=== PATIENT | male | born 1960 | race African-American/Black ===

== ENCOUNTER 2018-06-08 09:18 | Inpatient (IN) | payer BC ==
[~2018-06-08] VITALS: Ht 175.3 cm; Wt 108.4 kg
[2018-06-08] VITALS (7 sets, daily range): BP systolic 120–142; BP diastolic 62–86
[2018-06-08 10:00] LABS: ABSOLUTE NEUTROPHILS 2.4 thou/uL (1.4-8.2); BASOPHILS 1.3 % (0.0-2.0); EOSINOPHILS 2.3 % (0.0-3.0); HEMATOCRIT 43.8 % (42.0-52.0); LYMPHOCYTES 22.5 % (24.0-44.0); MCH 29.6 pg (26.0-34.0); MCHC 34.1 g/dL (28.0-37.0); MCV 86.8 fL (80.0-100.0); MONOCYTES 8.7 % (1.0-8.0); PLATELET COUNT 200 thou/uL (150-400); POLYS 65.2 % (36.0-66.0); RBC 5.05 mil/uL (4.50-6.00); RDW 13.5 % (10.5-14.5); WBC 3.7 thou/uL (4.0-11.0)
[2018-06-08 10:03] LABS: ANION GAP 7 mmol/L (7-16); BUN 21 mg/dL (7-18); CALCIUM 9.5 mg/dL (8.5-10.1); CHLORIDE 106 mmol/L (98-107); CO2 31 mmol/L (21-32); CREATININE 1.7 mg/dL (0.7-1.3); GLUCOSE 111 mg/dL (74-106); POTASSIUM 3.6 mmol/L (3.5-5.1); SODIUM 144 mmol/L (136-145)
[2018-06-08 10:11] LABS: ALBUMIN 3.5 g/dL (3.4-5.0); SGOT 24 U/L (15-37); SGPT 25 U/L (30-65); TOTAL BILIRUBIN 0.3 mg/dL (<0.1-1.0); TOTAL PROTEIN 6.9 g/dL (6.4-8.2); TROPONIN-I <0.06 ng/mL (<0.06)
[2018-06-08] MEDS ORDERED: HYDRALAZINE 2525 MG PO (12:17)
[2018-06-08] MEDS ORDERED: TOPROL XL100 MG PO (12:17)
[2018-06-08] MEDS ORDERED: ZYLOPRIM300 MG PO (12:18)
[2018-06-08] MEDS ORDERED: INDAPAMIDE2.5 MG PO (12:21)
--- NOTE | 2018-06-08 14:46 | EKG ---
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: TERESA : 1960 Requested By: Arianna King Order Number: [id number] MD: Trevon Green Measurements Intervals [place] Rate: 61 P: 30 [place]: 168 QRS: -65 QRSD: 126 T: 242 QT: 457 QTc: 461 Interpretive Statements Sinus rhythm Nonspecific IVCD with LAD Inferior infarct, old Abnrm T, consider ischemia, anterolateral lds Compared to ECG 02/06/2008 11:09:41 Electronically Signed On 06-08-2018 14:46:28 CDT by Trevon Green [email or web address] ��������������������������������������������� <ELECTRONICALLY SIGNED> ���������������������������������������� By: Trevon Green MD ��������������������������������������������� 06/08/18 1446 0923 Trevon Green MD /EPI
--- NOTE | 2018-06-08 15:50 | 2DMMODE ---
[facility] [place] [address] 2 D/M-MODE ECHOCARDIOGRAM Name: RUY MENDOZA Room #: 201-P [facility] IN M.R.#: [id number] ������������� Admission: 06/08/18 ������������� Attend Phys: Delfin Mancuso MD Discharge: ��� ������������� ��� Date of : 56 Date of Service: 06/08/18 1550 �� Report #: [id number] �������� ��������������������������������������������[id number] THIS REPORT FOR: //name// APPROVED REPORT Study performed: 06/08/2018 14:55:32 EXAM: Comprehensive 2D, Doppler, and color-flow Echocardiogram Patient Location: Echo lab Room #: 201 Status: routine BSA: 2.23 HR: 57 bpm BP: 134/86 mmHg Rhythm: NSR/irregular Other Information Study Quality: Good Indications Abnormal ECG Chest Pain 2D Dimensions RVDd: 42.16 mm IVSd: 12.94 (7-11mm) LVOT Diam: 22.70 (18-24mm) LVDd: 48.11 mm PWd: 12.03 (7-11mm) Ascending Ao: 36.21 (22-36mm) LVDs: 35.75 (25-40mm) Aortic Root: 40.07 mm Volumes Left Atrial Volume (Systole) Single Plane 4CH: 58.09 mL Single Plane 2CH: 66.87 mL LA ESV Index: 29.00 mL/m2 Aortic Valve AoV Peak Young.: 1.38 m/s AO Peak Gr.: 7.60 mmHg LVOT Max P.77 mmHg LVOT Max V: 1.09 m/s MORALES Vmax: 3.20 cm2 Mitral Valve E/A Ratio: 1.3 MV Decel. Time: 195.87 ms [facility] [place] [address] 2 D/M-MODE ECHOCARDIOGRAM Name: RUY MENDOZA Room #: 201-P [facility] IN [facility].#: [id number] ������������� Admission: 06/08/18 ������������� Attend Phys: Delfin Mancuso MD Discharge: ��� ������������� ��� Date of : 56 Date of Service: 06/08/18 1550 �� Report #: [id number] �������� ��������������������������������������������[id number] MV E Max Young.: 0.66 m/s MV A Young.: 0.49 m/s MV PHT: 56.80 ms IVRT: 87.66 ms Pulmonary Valve PV Peak Young.: 0.85 m/s PV Peak Gr.: 2.91 mmHg Pulmonary Vein P Vein S: 0.46 m/s P Vein D: 0.35 m/s P Vein S/D Ratio: 1.31 Tricuspid Valve TR Peak Young.: 1.78 m/s RAP Estimate: 5.00 mmHg TR Peak Gr.: 12.61 mmHg PA Pressure: 22.00 mmHg Left Ventricle The left ventricle is normal size. There is normal LV segmental wall motion. Mild concentric left ventricular hypertrophy. Left ventricular systolic function is normal. LVEF is 55-60%. Moderate diastolic dysfunction is present (pseudonormal filling). Right Ventricle The right ventricle is normal size. The right ventricular systolic function is normal. Atria The left atrium size is normal. The right atrium size is normal. Aortic Valve The aortic valve is normal in structure. Mild aortic regurgitation. There is no aortic valvular stenosis. Mitral Valve The mitral valve is normal in structure. Trace mitral regurgitation. Tricuspid Valve The tricuspid valve is normal in structure. Trace tricuspid regurgitation. Estimated PAP is 20-25mmHg. Pulmonic Valve The pulmonary valve is normal in structure. Trace pulmonic [facility] [address] [place] [address] 2 D/M-MODE ECHOCARDIOGRAM Name: RUY MENDOZA Room #: 201-P [facility] IN .R.#: [id number] ������������� Admission: 06/08/18 ������������� Attend Phys: Delfin Mancuso MD Discharge: ��� ������������� ��� Date of : 56 Date of Service: 06/08/18 1550 �� Report #: [id number] �������� ��������������������������������������������[id number] regurgitation. Great Vessels Aortic root is mildly dilated at 4.0cm. The ascending aorta is normal in size. IVC is normal in size and collapses >50% with inspiration. Pericardium There is no pericardial effusion. <Conclusion> The left ventricle is normal size. LVEF is 55-60%. The aortic valve is normal in structure. Mild aortic regurgitation. The mitral valve is normal in structure. Trace mitral regurgitation. The tricuspid valve is normal in structure. Trace tricuspid regurgitation. Estimated PAP is 20-25mmHg. The pulmonary valve is normal in structure. Trace pulmonic regurgitation. Aortic root is mildly dilated at 4.0cm. There is no pericardial effusion. ��������������������������������������������� <ELECTRONICALLY SIGNED> ���������������������������������������� By: Cedric Amaro MD ��������������������������������������������� 06/08/18 1550 1550 1550 Cedric Amaro MD /INF
--- NOTE | 2018-06-08 16:56 | NUR ---
[age] YEAR OLD MALE ADMITTED TO 201 UNDER THE CARE OF DR. CALZADA. PT CAME IN TO THE ER THIS MORNING AFTER BEING TOLD TO DO AO PER PCP. PT HAD BEEN C/O CHEST PAIN. PT IS ALERT AND ORIETED TIMES FOUR, VERY PLEASANT. VSS, 98%RA, SR ON TELE, IVF INFUSING PER ORDER. PT DENEIS ANY PAIN OR SOA DURING ADMISSION ASSESSMENT. PT UP WITH STAND BY ASSIT. PT TOLERATES MEDS AND MEALS. PT DAUGHTS AT BEDSIDE. WILL CONTINUE TO MONITOR.
[2018-06-09 00:43] VITALS: BP 145/86
--- NOTE | 2018-06-09 02:31 | NUR ---
ASSUMED CARE 1900. VSS-SR ON MONITOR. ASSESSMENT CHARTED. PT DENIES CP, SOA, DIZZINESS, NUMBNESS, OR PRIOR SYMPTOMS. PT STATED HE HAD CHEST DISCOMFORT WHEN BROUGHT TO ED BUT NOT SINCE ON UNIT. FLUIDS PER EMAR, ST BY TO BATHROOM STEADY. SLEEPING WELL THROUGH NIGHT. PLAN FOR AM LABS, EKG, AND STRESS TEST. WILL CONTINUE TO MONITOR AND WITH POC.
[2018-06-09 04:20] VITALS: BP 172/94
[2018-06-09 05:18] LABS: HEMATOCRIT 44.1 % (42.0-52.0); HEMOGLOBIN 14.9 gm/dL (14.0-18.0); MCH 29.7 pg (26.0-34.0); MCHC 33.9 g/dL (28.0-37.0); MCV 87.7 fL (80.0-100.0); PLATELET COUNT 189 thou/uL (150-400); RBC 5.03 mil/uL (4.50-6.00); RDW 13.4 % (10.5-14.5); WBC 4.5 thou/uL (4.0-11.0)
[2018-06-09 05:27] LABS: CALCIUM 9.6 mg/dL (8.5-10.1); CREATININE 1.6 mg/dL (0.7-1.3); POTASSIUM 3.8 mmol/L (3.5-5.1)
[2018-06-09 06:11] LABS: ABSOLUTE NEUTROPHILS 2.2 thou/uL (1.4-8.2)
[2018-06-09 06:12] LABS: PLATELET ESTIMATE NORMAL
[2018-06-09 06:18] LABS: CHOLESTEROL 232 mg/dL (<200); HDL CHOLESTEROL 34 mg/dL (>40); LDL CHOLESTEROL 164 mg/dL (<100); SERUM ASSESSMENT Clear; TC:HDL 6.8 Ratio (Not establshd); TRIGLYCERIDE 170 mg/dL (<150); TROPONIN-I <0.06 ng/mL (<0.06); VLDL 34 mg/dL (<40)
--- NOTE | 2018-06-09 08:34 | EKG ---
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 Cutter: KAREN : 1960 Requested By: Flora Almeida Order Number: [id number] MD: Trevon Green Measurements Intervals [place] Rate: 68 P: 43 [place]: 161 QRS: -55 QRSD: 97 T: -22 QT: 432 QTc: 460 Interpretive Statements Sinus rhythm Abnormal R-wave progression, late transition Probable inferior infarct, age indeterminate Baseline wander in lead(s) V6 Compared to ECG 06/08/2018 09:23:43 Intraventricular conduction delay no longer present Possible ischemia no longer present Myocardial infarct finding still present Electronically Signed On 06-09-2018 8:33:46 CDT by Trevon Green [email or web address] ��������������������������������������������� <ELECTRONICALLY SIGNED> ���������������������������������������� By: Trevon Green MD ��������������������������������������������� 06/09/1833 0 0 Trevon Green MD /EPI
[2018-06-09 08:42] VITALS: BP 162/105
[2018-06-09] MEDS ORDERED: LISINOPRIL40 MG PO ×2 (11:28→13:59)
[2018-06-09 11:29] VITALS: BP 156/89
[2018-06-09] MEDS ORDERED: ASPIRIN81 M2 PO (13:59)
[2018-06-09] MEDS ORDERED: NITROGLYCERIN0.4 MG SUBLING (13:59)
[2018-06-09] MEDS ORDERED: ATORVASTATIN CA40 MG PO (13:59)
[2018-06-09 14:31] VITALS: BP 156/89
== END 2018-06-09 15:03 | disposition home or self-care (01) | DRG 205 ==
LOC: ER 09:18 → EROBS 10:46 → 2N 10:46 → ENTRNSPT 06-09 14:55 → EDTRNSPTSTS 06-09 14:56 → 2N 06-09 15:03
PROVIDERS: Nurse Practitioner; Physician Assistant; ADMIT Hospitalist
DX: M94.0 Chondrocostal junction syndrome [Tietze] (principal); E43 Unspecified severe protein-calorie malnutrition; N17.9 Acute kidney failure, unspecified; I10 Essential (primary) hypertension; E78.5 Hyperlipidemia, unspecified; M10.9 Gout, unspecified; Z60.2 Problems related to living alone; Z96.0 Presence of urogenital implants; I70.1 Atherosclerosis of renal artery; Z87.442 Personal history of urinary calculi; Z82.49 Family history of ischemic heart disease and other diseases of the circulatory system; Z83.3 Family history of diabetes mellitus; Z79.899 Other long term (current) drug therapy
CPT/HCPCS: 10081

== ENCOUNTER 2018-06-13 08:22 | Emergency (ER) | payer BC ==
[~2018-06-13] VITALS: Ht 177.8 cm; Wt 108.9 kg
[~2018-06-13 08:22] MED LIST: ASPIRIN81 M2 PO; ATORVASTATIN CA40 MG PO; HYDRALAZINE 2525 MG PO; INDAPAMIDE2.5 MG PO; LISINOPRIL40 MG PO; NITROGLYCERIN0.4 MG SUBLING; TOPROL XL100 MG PO; ZYLOPRIM300 MG PO
[2018-06-13 09:12] LABS: ABSOLUTE NEUTROPHILS 2.3 thou/uL (1.4-8.2); BASOPHILS 2.2 % (0.0-2.0); EOSINOPHILS 2.4 % (0.0-3.0); HEMATOCRIT 45.2 % (42.0-52.0); HEMOGLOBIN 15.5 gm/dL (14.0-18.0); LYMPHOCYTES 26.2 % (24.0-44.0); MCH 29.6 pg (26.0-34.0); MCHC 34.3 g/dL (28.0-37.0); MCV 86.2 fL (80.0-100.0); MONOCYTES 9.9 % (1.0-8.0); PLATELET COUNT 186 thou/uL (150-400); POLYS 59.3 % (36.0-66.0); RBC 5.24 mil/uL (4.50-6.00); RDW 13.6 % (10.5-14.5); WBC 3.9 thou/uL (4.0-11.0)
[2018-06-13 09:19] LABS: CALCIUM 9.2 mg/dL (8.5-10.1); CREATININE 1.5 mg/dL (0.7-1.3); POTASSIUM 4.1 mmol/L (3.5-5.1)
[2018-06-13 09:28] LABS: TROPONIN-I 0.06 ng/mL (<0.06)
[2018-06-13] MEDS ORDERED: REGLAN 5 MG TAB5 MG PO (13:29)
[2018-06-13] MEDS ORDERED: NITROGLYCERIN0.4 MG SUBLING (13:29)
[2018-06-13 13:38] VITALS: BP 163/105
[2018-06-14] MEDS ORDERED: HYDRALAZINE 2525 MG PO (12:53)
[2018-06-14] MEDS ORDERED: PRAVACHOL40 MG PO (12:54)
[2018-06-14] MEDS ORDERED: BENAZEPRIL HCL40 MG PO (12:54)
[2018-06-14] MEDS ORDERED: IBUPROFEN 200200 M1 PO (12:56)
[2018-06-14] MEDS ORDERED: POTASSIUM99 M1 PO (12:56)
[2018-06-14] MEDS ORDERED: INDAPAMIDE2.5 MG PO (12:57)
--- NOTE | 2018-06-14 13:37 | EKG ---
[address] [address] [facility] [place] [address] ELECTROCARDIOGRAM REPORT Name: RUY MENDOZA Room #: DEP [facility]#: [id number] ������������������ Admission: 06/13/18 ������������������ Attend Phys: Discharge: 06/13/18 ������������������ Date of : 56 Report #: [id number] ����������������������������������������������������������������� [id number] THIS REPORT FOR: //name// [facility] ED Test Date: 2018-06-13 Test Time: 09:11:01 Pat Name: RUY MENDOZA Department: Room: Gender: M Account Solutions Analyst: [facility] : 1960 Requested By: Katerina Singh Order Number: [id number] MD: Popeye Higuera Measurements Intervals [place] Rate: 65 P: 33 [place]: 167 QRS: -58 QRSD: 93 T: -25 QT: 413 QTc: 430 Interpretive Statements Sinus rhythm Abnormal R-wave progression, late transition Inferior infarct, old Compared to ECG 06/09/2018 07:01:38 No significant changes Electronically Signed On 06-14-2018 13:36:50 CDT by Popeye Higuera [email or web address] ��������������������������������������������� <ELECTRONICALLY SIGNED> ���������������������������������������� By: Popeye Higuera MD, [facility] ��������������������������������������������� 06/14/18 1336 0 0 Popeye Higuera MD, [facility] /EPI
== END 2018-06-13 13:38 | disposition home or self-care (01) ==
LOC: ER 08:22
PROVIDERS: Emergency Medicine
DX: R07.89 Other chest pain (principal); R51 Headache; I10 Essential (primary) hypertension; E78.5 Hyperlipidemia, unspecified; M10.9 Gout, unspecified

== ENCOUNTER 2018-06-14 09:04 | Inpatient (IN) | payer BC ==
[~2018-06-14] VITALS: Ht 177.8 cm; Wt 108.1 kg
[~2018-06-14 09:04] MED LIST changes: +REGLAN 5 MG TAB5 MG PO
[2018-06-14 09:14] VITALS: BP 169/135
[2018-06-14 09:40] LABS: ABSOLUTE NEUTROPHILS 2.6 thou/uL (1.4-8.2); BASOPHILS 1.1 % (0.0-2.0); EOSINOPHILS 1.5 % (0.0-3.0); HEMATOCRIT 48.6 % (42.0-52.0); HEMOGLOBIN 16.4 gm/dL (14.0-18.0); LYMPHOCYTES 27.5 % (24.0-44.0); MCH 29.5 pg (26.0-34.0); MCHC 33.8 g/dL (28.0-37.0); MCV 87.4 fL (80.0-100.0); PLATELET COUNT 205 thou/uL (150-400); POLYS 60.9 % (36.0-66.0); RBC 5.56 mil/uL (4.50-6.00); RDW 13.5 % (10.5-14.5); WBC 4.3 thou/uL (4.0-11.0)
[2018-06-14 09:52] LABS: ANION GAP 8 mmol/L (7-16); BUN 17 mg/dL (7-18); CALCIUM 10.2 mg/dL (8.5-10.1); CHLORIDE 107 mmol/L (98-107); CO2 29 mmol/L (21-32); CREATININE 1.5 mg/dL (0.7-1.3); GLUCOSE 103 mg/dL (74-106); POTASSIUM 4.1 mmol/L (3.5-5.1); SODIUM 144 mmol/L (136-145); TROPONIN-I <0.06 ng/mL (<0.06)
[2018-06-14 11:07] VITALS: BP 177/110
[2018-06-14 11:40] VITALS: BP 174/108
[2018-06-14 11:56] VITALS: BP 182/124
[2018-06-14] MEDS ORDERED: HYDRALAZINE 2525 MG PO (12:53)
[2018-06-14] MEDS ORDERED: PRAVACHOL40 MG PO (12:54)
[2018-06-14] MEDS ORDERED: BENAZEPRIL HCL40 MG PO (12:54)
[2018-06-14 12:56] LABS: ALBUMIN 4.1 g/dL (3.4-5.0); TOTAL PROTEIN 8.1 g/dL (6.4-8.2)
[2018-06-14] MEDS ORDERED: POTASSIUM99 M1 PO (12:56)
[2018-06-14] MEDS ORDERED: IBUPROFEN 200200 M1 PO (12:56)
[2018-06-14] MEDS ORDERED: INDAPAMIDE2.5 MG PO (12:57)
[2018-06-14 13:23] LABS: TSH 1.078 uIU/mL (0.358-3.740)
--- NOTE | 2018-06-14 13:51 | EKG ---
[address] [place] [address] ELECTROCARDIOGRAM REPORT Name: RUY MENDOZA Room #: 358-P ADM IN M.R.#: [id number] ������������������ Admission: 06/14/18 ������������������ Attend Phys: Candido Rios MD Discharge: ������������������ Date of : 56 Report #: [id number] ����������������������������������������������������������������� [id number] THIS REPORT FOR: //name// [facility] ED Test Date: 2018-06-14 Test Time: 09:33:52 Pat Name: RUY MENDOZA Department: Room: 358 Gender: M Curtain Stretcher: MARCELO : 1960 Requested By: Katerina Singh Order Number: [id number] MD: Popeye Higuera Measurements Intervals [place] Rate: 68 P: 30 [place]: 169 QRS: -54 QRSD: 108 T: -28 QT: 396 QTc: 422 Interpretive Statements Sinus rhythm Premature ventricular premature complexes Abnormal R-wave progression, late transition Inferior infarct, old Compared to ECG 06/09/2018 07:01:38 Ventricular premature complex(es) now present Electronically Signed On 06-14-2018 13:51:04 CDT by Popeye Higuera [email or web address] ��������������������������������������������� <ELECTRONICALLY SIGNED> ���������������������������������������� By: Popeye Higuera MD, [facility] ��������������������������������������������� 06/14/18 1351 0933 0933 Popeye Higuera MD, [facility] /EPI
[2018-06-14 15:21] VITALS: BP 176/104
--- NOTE | 2018-06-14 15:59 | NUR ---
PATIENT ADMITTED TO UNIT. HE IS ALER SUSIED X4. AND DAUGHTER ACCOMPANIED HIM. AT THIS TIME HE COMPLAINED OF CHEST PAIN. STATES IT IS IF AN ELELPHANT IS SITTING ON MY CHEST. NOTIFIED SEE NEW ORDERS. BP HAS STAYED STUBBORNLY HIGH DESPITE NUMEROUS MEDS ADMINISTERED. JUST ADMINISTERED ANOTHER DOSE OF HYDRALAZINE. WILL MONITOR EFFECITVENESS.
[2018-06-14 19:20] VITALS: BP 162/88
--- NOTE | 2018-06-14 21:18 | EKG ---
[address] [address] ELECTROCARDIOGRAM REPORT Name: RUY MENDOZA Room #: 358-P ADM IN M.R.#: [id number] ������������������ Admission: 06/14/18 ������������������ Attend Phys: Candido Rios MD Discharge: ������������������ Date of : 56 Report #: [id number] ����������������������������������������������������������������� [id number] THIS REPORT FOR: //name// [facility] Test Date: 2018-06-14 Test Time: 15:42:16 Pat Name: RUY MENDOZA Department: Room: 358 P Gender: M Turner And Former Automatic: CRISTIANO : 1960 Requested By: Candido Rios Order Number: [id number] MD: Trevon Green Measurements Intervals [place] Rate: 71 P: 31 [place]: 169 QRS: -58 QRSD: 111 T: -85 QT: 409 QTc: 445 Interpretive Statements Sinus rhythm Abnormal R-wave progression, early transition Inferior infarct, old Abnrm T, consider ischemia, anterolateral lds Compared to ECG 06/14/2018 09:33:52 Possible ischemia now present Ventricular premature complex(es) no longer present Myocardial infarct finding still present Electronically Signed On 06-14-2018 21:17:48 CDT by Trevon Green [email or web address] ��������������������������������������������� <ELECTRONICALLY SIGNED> ���������������������������������������� By: Trevon Green MD ��������������������������������������������� 06/14/18 2117 [id number] 154 Trevon Green MD /EPI
[2018-06-15] VITALS: BP 139/94
--- NOTE | 2018-06-15 03:22 | NUR ---
ASSUMED PT CARE AROUND 1900. A&OX4. PT HAS DENIED ANY CHEST PAIN SO FAR THIS SHIFT. C/O INDIGESTION AT BEGINNING OF SHIFT. NOTIFIED SAUSAGE LINKER DUMPSTER OPERATOR FOR HOSPITALIST. ORDER RECEIVED FOR TUMS. PT STATED HIS INDIGESTION RESOLVED AFTER TAKING TUMS. PT HAS BEEN SLEEPING MOST OF THE NIGHT. RESP EVEN AND UNLABORED. UP AD GLEN AROUND THE ROOM. NPO AFTER MIDNIGHT FOR CARDIAC CATH TODAY. BP IMPROVING. PROGRESSING TOWARD POC GOALS. WILL CONTINUE TO MONITOR FURTHER.
[2018-06-15 03:30] VITALS: BP 150/95
[2018-06-15 05:51] LABS: HEMATOCRIT 46.6 % (42.0-52.0); HEMOGLOBIN 15.7 gm/dL (14.0-18.0); MCH 29.4 pg (26.0-34.0); MCHC 33.7 g/dL (28.0-37.0); MCV 87.4 fL (80.0-100.0); RBC 5.34 mil/uL (4.50-6.00); RDW 13.7 % (10.5-14.5); WBC 5.5 thou/uL (4.0-11.0)
[2018-06-15 06:22] LABS: ANION GAP 10 mmol/L (7-16); BUN 18 mg/dL (7-18); CALCIUM 9.9 mg/dL (8.5-10.1); CHLORIDE 105 mmol/L (98-107); CO2 26 mmol/L (21-32); CREATININE 1.2 mg/dL (0.7-1.3); GLUCOSE 95 mg/dL (74-106); MAGNESIUM 2.3 mg/dL (1.8-2.4); POTASSIUM 4.3 mmol/L (3.5-5.1); SODIUM 141 mmol/L (136-145); TROPONIN-I <0.06 ng/mL (<0.06)
[2018-06-15 07:21] VITALS: BP 156/88
[2018-06-15 16:45] VITALS: BP 180/102
--- NOTE | 2018-06-15 16:45 | NUR ---
RECEIVED FROM CASING CREW VSS BP 180/102 NSR, R GROIN CATH SITE WITHOUT HEMATOMA OR BRUIT. INSTUCTED BR X 4 HOURS. SEE DATA F;LOW SHEET FOR FREQUENT VS AND GROIN CHECKS. WILL CONTINUE TO MONITER AND CARE FOR PT PER PLAN OF CARE
--- NOTE | 2018-06-15 16:52 | NUR ---
PATIENT WENT TO MVA REACTOR OPERATOR THIS AFTERNOON. JUST GO REPORT THAT HE WILL BE ADMITTED TO . THIS AM HE STATED HIS PAIN WAS MUCH BETTER. HE DID NOT HAVE ANY PAIN MEDICATION THIS AM. REMAINS AOX4. PLEASANT.
[2018-06-15 20:45] VITALS: BP 164/94
[2018-06-16] VITALS (25 sets, daily range): BP systolic 96–151; BP diastolic 55–101
[2018-06-16 04:52] LABS: HEMATOCRIT 44.1 % (42.0-52.0); HEMOGLOBIN 14.9 gm/dL (14.0-18.0); MCH 29.6 pg (26.0-34.0); MCHC 33.8 g/dL (28.0-37.0); MCV 87.7 fL (80.0-100.0); RBC 5.02 mil/uL (4.50-6.00); RDW 13.8 % (10.5-14.5); WBC 5.4 thou/uL (4.0-11.0)
[2018-06-16 04:59] LABS: CREATININE 1.5 mg/dL (0.7-1.3); POTASSIUM 3.8 mmol/L (3.5-5.1)
--- NOTE | 2018-06-16 07:02 | NUR ---
ASSUME CARE 1900. PT STABLE. HIGH BP STABILIZING WITH BP MED ADMINISTRATION. DENIES ANY PAIN. COMPLAINS OF SOME CHEST TIGHTNESS, RELIEVED BY 2LNC. ASSESSMENT CHARTED. PROGRESSNG WELL WITH POC. ADEQUATE REST NOTED. PLAN IS TO CONSULT OTHER DEPARTMENTS FOR CONTINUOUS MANAGEMENT OF MULTIPLE BLOCKAGE NOTED IN CATH, AAS WELL ADOMINAL PROBLEMS. WILL CONTINUE TO MONITOR AND FOLLOW WITH POC
[2018-06-16 14:50] LABS: HEMATOCRIT 42.2 % (42.0-52.0); HEMOGLOBIN 14.4 gm/dL (14.0-18.0); MCH 29.8 pg (26.0-34.0); MCHC 34.2 g/dL (28.0-37.0); MCV 87.3 fL (80.0-100.0); RBC 4.84 mil/uL (4.50-6.00); RDW 13.6 % (10.5-14.5); WBC 4.6 thou/uL (4.0-11.0)
--- NOTE | 2018-06-16 14:50 | NUR ---
PT C/O CHEST TIGHTNESS, NSR BP STABLE, MEDICATED WITH NTG X 3 5 MIN APART, WITH NO RELIEF, MS 4 GIVEM WITH EVENTUAL RELIEF 5 TO 1, EKG RECEIVED, DR BARON AWARE STARTED ON IV NTG/HEPARIN GTT, PT AWARE GOING TO SECOND FACING BASTER TODAY. WILLCONTINUE TO MONITER AND CARE FOR PTPER PLANOF CARE
--- NOTE | 2018-06-16 15:01 | CATHLAB ---
[facility] [place] [address] INVASIVE PROCEDURE REPORT Name: RUY MENDOZA Room #: 200-I [facility] IN [facility]#: [id number] ������������� Admission: 06/14/18 ������������� Attend Phys: Candido Rios, Discharge: ��� ������������� ��� Date of : 56 Date of Service: 06/16/18 1501 �� Report #: [id number] �������� ��������������������������������������������[id number] THIS REPORT FOR: //name// APPROVED REPORT Study performed: 06/15/2018 14:25:47 Patient Details The patient is a 57 year-old male Event Personnel Justyn Paige Tractor Mechanic Apprentice, Sarah River RN RN, Sarahy Berg RN, Neno Healy, Camilla Leone RT(R)() Scrub Procedures Performed Art Access - R femoral artery* Left Heart Cath w/or w/o Coronaries [id number] [facility] [address] Initial Mod Sed Same Phys/QHP [facility] 734330 49291 Mod Sed Same Phys/QHP Ea 064331 Indication Unstable angina , Positive stress test, Chest pain Risk Factors Hypercholesterolemia, HypertensionRenal Failure Procedure Narrative The Right Groin^ was infiltrated with 1% Lidocaine subcutaneous anesthesia. A PINNACLE 6FR Sheath #[id number] sheath was inserted into the RFA^. Coronary angiography was performed using coronary diagnostic catheters. The right coronary system was accessed and visualized with a JR4 catheter. The left coronary system was accessed and visualized with a JL5 catheter. The left ventricle was accessed and visualized with a ANGLE PIG catheter. Closure device was deployed with a Fr MYNXGRIP 6/7F #[id number]. The patient tolerated the procedure well and there were no complications associated with the procedure. There was no hematoma. Intraoperative Conscious Sedation Sedation start time: 1525 Case end Time: 1620 Fentanyl 25 mcg Versed 2 mg Fluoro Time: 2.57 minutes Dose: DAP 5635.00 cGycm2 713 mGy [facility] [place] [address] INVASIVE PROCEDURE REPORT Name: RUY MENDOZA Room #: 200-I [facility] IN [facility]#: [id number] ������������� Admission: 06/14/18 ������������� Attend Phys: Candido Rios, Discharge: ��� ������������� ��� Date of : 56 Date of Service: 06/16/18 1501 �� Report #: [id number] �������� ��������������������������������������������[id number] Contrast Type and Amount: Omnipaque 160 ml Coronary Angiography The patient's coronary anatomy is co- dominant. Diagnostic Cath Left Main This is a large caliber vessel, patent with no flow-limiting lesions. LAD The proximal segment of the LAD is a moderate to large caliber vessel. It tapers down to a moderate size caliber in the midsegment and then tapers down to a small size caliber vessel in the distal region. This vessel is patent with mild to moderate disease in the mid segment, 40%. Diagonal 1 This is a moderate size caliber vessel with a high takeoff from the LAD. There is moderate disease in the proximal segment, 40%. It then divides into 2 branches, as it travels down the anterolateral wall. Circumflex This is a codominant vessel, after branching off the left main artery, there is a sharp bend, more than 90�. There is a severe stenosis at this bend, 80%. In the mid to distal segment, there is a severe occlusion, 95%. OM1 This is a small-caliber vessel, with mild disease. OM2 The ostium has a subtotal occlusion. OM3 This is a patent vessel, with no flow-limiting lesions. Right Coronary This vessel is patent and is tortuous as it travels down, with no flow-limiting lesions. R PDA There is a severe occlusion at the ostium, 70%. Ramus There is an ostial occlusion, 80%. Left Ventriculography The left ventricle is normal in size with normal contractility. The left ventricular ejection fraction is estimated to be 55-60%. Hemodynamics The aortic pressure is 166/111 mmHg with a mean of 135 mmHg. The left ventricular pressure is 175/17 mmHg with a mean of mmHg. The left ventricular end diastolic pressure is 22 mmHg. Conclusion 1. 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 2. Moderate disease in a moderate size first diagonal artery. 3. Normal LV systolic function. [facility] [address] [place] [address] INVASIVE PROCEDURE REPORT Name: KELLYRUY Room #: 200-I ADM IN M.R.#: [id number] ������������� Admission: 06/14/18 ������������� Attend Phys: Candido Rios, Discharge: ��� ������������� ��� Date of : 56 Date of Service: 06/16/18 1501 �� Report #: [id number] �������� ��������������������������������������������[id number] 4. Recommend CV surgical consultation. Consider staged angioplasty if surgery is not performed. ��������������������������������������������� <ELECTRONICALLY SIGNED> ���������������������������������������� By: Justyn Paige MD ��������������������������������������������� 06/16/18 1501 1501 1501 Justyn Paige MD /INF
[2018-06-16 15:02] LABS: PROTIME 10.4 Seconds (9.3-11.4)
--- NOTE | 2018-06-16 17:03 | EKG ---
[address] [address] [facility] [email or web address] [address] ELECTROCARDIOGRAM REPORT Name: HAIM MENDOZAIFTON Neftali Room #: 200-I ADM IN M.R.#: [id number] ������������������ Admission: 06/14/18 ������������������ Attend Phys: Candido Rios MD Discharge: ������������������ Date of : 56 Report #: [id number] ����������������������������������������������������������������� [id number] THIS REPORT FOR: //name// [facility] Test Date: 2018-06-16 Test Time: 14:25:47 Pat Name: RUY MENDOZA Department: Room: 200 I Gender: M Integration Solution Architect: Concetta VILLAVICENCIO : 1960 Requested By: Justyn Paige Order Number: [id number] MD: Popeye Higuera Measurements Intervals [place] Rate: 64 P: 18 [place]: 155 QRS: -77 QRSD: 102 T: 228 QT: 464 QTc: 479 Interpretive Statements Sinus rhythm Abnormal R-wave progression, late transition Inferior infarct, old Abnrm T, consider ischemia, anterolateral lds Baseline wander in lead(s) V3 Compared to ECG 06/14/2018 15:42:16 No significant changes Electronically Signed On 06-16-2018 17:03:37 CDT by Popeye Higuera [email or web address] ��������������������������������������������� <ELECTRONICALLY SIGNED> ���������������������������������������� By: Popeye Higuera MD, [facility] ��������������������������������������������� 06/16/18 1703 1425 1425 Popeye Higuera MD, [facility] /EPI
--- NOTE | 2018-06-16 17:35 | NUR ---
PATIENT TRANSFERED FROM CCU. HE IS ALERT AND ORIENTED. HE DENIES CHEST PAIN AT THIS TIME. NITRO GTT INFUSING WELL HEPARIN GTT. NURSE TO CONTINUE TO MONITOR PATIENT STATUS.
--- NOTE | 2018-06-16 19:11 | NUR ---
NURSE TALKED WITH DR. ABARCA AND PATIENT OK TO EAT SUPPER THEN NPO AFTER MIDNIGHT. THIS WAS RELAYED TO BEARING MAKER RN.
[2018-06-17] VITALS (65 sets, daily range): BP systolic 94–171; BP diastolic 45–100
[2018-06-17 05:36] LABS: HEMATOCRIT 43.6 % (42.0-52.0); HEMOGLOBIN 14.7 gm/dL (14.0-18.0); MCH 29.2 pg (26.0-34.0); MCHC 33.8 g/dL (28.0-37.0); MCV 86.4 fL (80.0-100.0); RBC 5.04 mil/uL (4.50-6.00); RDW 13.7 % (10.5-14.5); WBC 6.1 thou/uL (4.0-11.0)
[2018-06-17 05:53] LABS: CALCIUM 9.1 mg/dL (8.5-10.1); CREATININE 1.7 mg/dL (0.7-1.3); MAGNESIUM 2.1 mg/dL (1.8-2.4); POTASSIUM 4.1 mmol/L (3.5-5.1)
--- NOTE | 2018-06-17 07:52 | NUR ---
PT WAS CHEST PAIN FREE ALL NIGHT, VITALS WNL THIS AM PT/ C/O OF INDGESTION, PEPCID IV GIVEN PER CREW TRAINER ORDERS,PT RESTFUL AFTERWARDS. PT NPO SINCE MIDNIGHT FOR ANGIOPLASTY TODAY. NITRO GTT INFUSING , HEPARIN GTT, PROTOCOL FOLLOWED.
[2018-06-17 10:22] LABS: HEMATOCRIT 40.8 % (42.0-52.0); HEMOGLOBIN 13.9 gm/dL (14.0-18.0); MCH 29.6 pg (26.0-34.0); MCHC 34.1 g/dL (28.0-37.0); MCV 86.9 fL (80.0-100.0); RBC 4.69 mil/uL (4.50-6.00); RDW 13.8 % (10.5-14.5); WBC 5.3 thou/uL (4.0-11.0)
[2018-06-17 10:37] LABS: CALCIUM 9.1 mg/dL (8.5-10.1); CREATININE 1.6 mg/dL (0.7-1.3); POTASSIUM 3.9 mmol/L (3.5-5.1)
--- NOTE | 2018-06-17 15:02 | HC ---
[facility] [place] [address] CONSULTATION Name: RUY MENDOZA Room #: 242-P ADM IN M.R.#: [id number] Admission: 06/14/18 ������������������ Attend Phys: Candido Rios MD Discharge: ������������������ Date of : 56 Report #: [id number] THIS REPORT FOR: //name// CC: Candido Grey DATE OF SERVICE: 06/16/2018 REFERRING PHYSICIAN: We were asked by Dr. Paige to see the patient. HISTORY OF PRESENT ILLNESS: The patient is a 57-year-old admitted with shortness of breath. The patient states that he was admitted with concerns about his high blood pressure, causing shortness of breath with exertion and a sort of uneasiness in the chest that is not described as pain. The patient states that this has been going on for 3 weeks and was absent prior to that. The patient states that exertion leads to this, such as climbing stairs. 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 We note the patient had a positive nuclear scan. He was seen in the Emergency Department on 06/08/2018 for shortness of breath. The patient wanted to be discharged, but he returned to the ER on 06/13/2018 for recrudescence of symptoms. PAST MEDICAL HISTORY: Also includes hyperlipidemia, hypertension, gout, kidney stones with previous renal stent (in the urinary system, not the arteries). MEDICATIONS AT HOME: Includes Toprol, hydralazine, benazepril, allopurinol, indapamide, ____. ALLERGIES: None known. REVIEW OF SYSTEMS: CONSTITUTIONAL: No fever, weight change. EYES: No visual changes. HEENT: No headache, vertigo, hearing problems. RESPIRATORY: As mentioned shortness of breath with exertion. CARDIAC: Vague chest discomfort, not described as pain has been noted. No palpitations. SKIN: No rash or infection. ENDOCRINE: No goiter or tremors. GASTROINTESTINAL: No nausea, vomiting or blood. GENITOURINARY: No frequency or blood. [facility] [address] [place] [address] CONSULTATION Name: RUY MENDOZA Room #: 242-P [facility] IN [facility].#: [id number] Admission: 06/14/18 ������������������ Attend Phys: Candido Rios MD Discharge: ������������������ Date of : 56 Report #: [id number] NEUROLOGIC: No motor or sensory loss. PSYCHIATRIC: No depression or anxiety. MUSCULOSKELETAL: No joint pain. No muscle pain. HEMATOLOGIC: No anemia or thrombocytopenia. FAMILY HISTORY: Positive for coronary artery disease with "strokes and heart attacks" in the family. SOCIAL HISTORY: The patient is a never smoker. PHYSICAL EXAMINATION: VITAL SIGNS: Blood pressure today is 160/90, heart rate 74, respiratory rate 18, temperature 98.7, O2 sat 96 on room air. GENERAL: The patient is lying in bed comfortably. HEENT: Normocephalic. Pupils are round, equal in size and reactive. NECK: No mass, no bruit. CHEST: Clear. HEART: Rhythm regular, no murmurs audible. ABDOMEN: Soft, no mass, no tenderness. SKIN: No rash or infection. MUSCULOSKELETAL: No deformity or asymmetry. The patient has a mesomorphic habitus. NEUROLOGIC: No motor or sensory loss. PSYCHIATRIC: Shows insight into problem, answers questions appropriately and is a pleasant fellow. DIAGNOSTIC DATA: Angiogram by Dr. Paige yesterday showed diffuse nonocclusive changes. There were high-grade lesions in the circumflex system including an 80-90% proximal circumflex and a total occlusion of the distal marginal. There is a ramus that has a 70% ostial lesion. Left main has trivial disease. LAD has trivial disease. There is a diagonal that has a 40-50% stenosis before bifurcation and in itself is a large vessel. Right coronary is relatively normal and there is a lesion at the origin of the posterior descending artery. Left ventricular function is normal. ASSESSMENT AND PLAN: The patient has coronary artery disease in addition to hypertension, not perfectly well controlled. We certainly need to redouble our efforts with treating the hypertension. The coronary artery disease, however, is more problematic. Certainly coronary artery bypass surgery can be done; however, there is a paucity of disease in the most critical vessels (left main and LAD). As such, it may be reasonable to try angioplasty and stent placement. If successful in terms of treating both anatomy and symptoms, then the patient will avoid an operation. If this is not successful, then surgery continues to be an option. [address] [address] CONSULTATION Name: RUY MENDOZA Room #: 242-P ADM IN M.R.#: [id number] Admission: 06/14/18 ������������������ Attend Phys: Candido Rios MD Discharge: ������������������ Date of : 56 Report #: [id number] The risks and details of surgery were discussed with the patient. The patient does wish to avoid operative intervention if at all possible. I have reviewed the case with Dr. Paige, who agrees with this approach in general as a starting point. It is a privilege to participate in this challenging patient's care. Thank you for the consult. ��������������������������������������������� <ELECTRONICALLY SIGNED> ���������������������������������������� By: Nilesh Hall MD ��������������������������������������������� 06/17/18 1502 0921 0034 Nilesh Hall MD /nt
--- NOTE | 2018-06-17 15:53 | NUR ---
CM ASSESSMENT: CASE OPENED FOR DC PLANNING. CLINICAL INFO REVIEWED. PT ADMIT WITH CHEST PAIN, HAD CATH SHOWING CAD, CTS CONSULT AND DECISION FOR PCI WHICH WAS DONE TODAY. PRIOR TO ADMIT, PT INDEPENDENT WITH WORKING. NO DME. LIKELY DC HOEM 06/18, NO CM NEEDS IDENTIFIED.
--- NOTE | 2018-06-17 19:28 | NUR ---
ASSUMED CARE OF PT. AT 0700. PT. IS ALERT AND ORIENTED X4, PLEASENT AND COOPERATIVE. DENIES CHEST PAIN. PT. CAME BACK FROM CARDIAC CATH AROUND 1400. RIGHT GROIN SITE IS CLEAN, DRY, AND INTACT WITH NO HEMATOMA FORMATION. BEDREST MAINTAINED UNITL 1800 PER PHYSICIAN ORDER. HEART HEALLTHY DIET TOLERATED AT DINNER. PT. OFF OXYGEN AFTER RETURNING FROM FLOOR. ASSESSMENTS AND VITAL SIGNS CHARTED. POC IS TO CONTINUE TO MONITOR GROIN SITE AND ASSESS FOR CHEST PAIN. WILL CONTINUE TO MONITOR.
[2018-06-18] VITALS (42 sets, daily range): BP systolic 96–153; BP diastolic 40–98
[2018-06-18 05:59] LABS: HEMOGLOBIN 14.5 gm/dL (14.0-18.0); MCH 29.5 pg (26.0-34.0); MCHC 33.7 g/dL (28.0-37.0); MCV 87.3 fL (80.0-100.0); RBC 4.92 mil/uL (4.50-6.00); RDW 13.8 % (10.5-14.5); WBC 5.4 thou/uL (4.0-11.0)
[2018-06-18 06:12] LABS: ALBUMIN 3.1 g/dL (3.4-5.0); CALCIUM 8.8 mg/dL (8.5-10.1); CREATININE 1.5 mg/dL (0.7-1.3); POTASSIUM 3.6 mmol/L (3.5-5.1); TOTAL BILIRUBIN 0.6 mg/dL (<0.1-1.0); TOTAL PROTEIN 6.8 g/dL (6.4-8.2)
[2018-06-18 06:14] LABS: TROPONIN-I 0.75 ng/mL (<0.06)
--- NOTE | 2018-06-18 07:18 | NUR ---
ASSUME CARE 1900. PT/VITALS STABLE. DENIES ANY PAIN BUT COMPLAINS OF FREQUENT EPISODES OF INDIGESION. ASSESSMENT CHARTED, PROGRESSING WELL WITH POC. RIGHT GROIN SITE CDI. 2 STENTS PLACED IN PROXIMAL AND DISTAL CIRC. PLAN IS A POSSIBLE DISCHARGE TODAY. WILL CONTINUE TO MONITOR AND FOLLOW WITH POC
--- NOTE | 2018-06-18 08:16 | CATHLAB ---
[facility] [employer] [address] INVASIVE PROCEDURE REPORT Name: RUY MENDOZA Room #: 242-P [facility] IN [facility]#: [id number] ������������� Admission: 06/14/18 ������������� Attend Phys: Candido Rios, Discharge: ��� ������������� ��� Date of : 56 Date of Service: 06/18/18 0816 �� Report #: [id number] �������� ��������������������������������������������[id number] THIS REPORT FOR: //name// APPROVED REPORT Study performed: 06/17/2018 11:08:11 Patient Details The patient is a 57 year-old male Event Personnel Justyn Paige Resident Care Spec, Meryl Gill Knisely, Ceola RN RN, Key Thomason RTR, BIOLOGICAL ENGINEER Scrub Procedures Performed ERIK Place w/wo Plasty Single CIRC [id number] Indication Dyspnea, Unstable angina , Chest pain, The patient had a previous cardiac catheterization, revealing multivessel disease. A CV consultation was obtained, the impression was surgery would be at higher risk and angioplasty should be the initial option. During this time, the patient developed unstable angina, requiring treatment with heparin and IV nitroglycerin. Risk Factors Hypercholesterolemia, Hypertension, Tobacco History () Procedure Narrative The Right Groin^ was infiltrated with subcutaneous anesthesia. A PINNACLE 6FR TIF Sheath #[id number] sheath was inserted into the RFA^. Coronary angiography was performed using coronary diagnostic catheters. Intraoperative Conscious Sedation Sedation start time: 1128 Case end Time: 1315 Fentanyl 100 mcg Versed 2.0 mg Fluoro Time: 44.11 minutes Dose: DAP 55549.70 cGycm2 5831 mGy Contrast Type and Amount: Visipaque 230 ml Diagnostic Cath Circumflex The left circumflex artery is a codominant vessel, [facility] [address] [place] [address] INVASIVE PROCEDURE REPORT Name: URY MENDOZA Room #: 242-P [facility] IN [facility].#: [id number] ������������� Admission: 06/14/18 ������������� Attend Phys: Candido Rios, Discharge: ��� ������������� ��� Date of : 56 Date of Service: 06/18/18 0816 �� Report #: [id number] �������� ��������������������������������������������[id number] tortuous as it travels down the AV groove. There are severe occlusions in the proximal and mid segments of the left circumflex artery. PCI Technique Lesion Patient was preloaded with Effient. Percutaneous coronary intervention was performed on the mid circumflex artery segment. The lesion stenosis prior to intervention was 95% with GEORGIE 3 flow. A VISTA 6FR XB 4 #[id number] Guide Catheter was used to engage the ostium. A HI-TORQUE IRON MAN .014 X 300CM Interventional Guidewire was used to cross the lesion. BALLOON DILATION A Balloon catheter Sprinter OTW 2.5 x 10 #[id number] was inserted and inflated up to 13.00atm for 22seconds. Additional Inflation: 8.00atm for 8seconds. Additional Inflation: 8.00atm for 19seconds. STENT DEPLOYMENT A stent RESOLUTE RONNIE RX 2.5 X 12 #[id number] was inserted and inflated up to 18.00atm for 23seconds. Final angiography reveals 0 % stenosis with GEORGIE 3 flow. COMMENTS Multiple guide catheters were attempted, including XB 3.5, AL-1, AL-2 and finally EBU 4.0. With the use of a EBU 4.0 guide catheter, I was able to pass a Whisper wire down into the distal left circumflex artery. Using an over the wire balloon system, I was able to switch the wire out for an Ironman wire for better support. PCI Technique Lesion 2 Patient was preloaded with Effient. Percutaneous coronary intervention was performed on the proximal circumflex artery segment. The lesion stenosis prior to intervention was 85% with GEORGIE 3 flow. A EBU 4.0 Guide Catheter was used to engage the LCA ostium. A Whisper Wire .014 x 190 #[id number] Interventional Guidewire was used to cross the lesion. Balloon Dilation A Balloon catheter Sprinter OTW 2.5 x 12 #[id number] was inserted and inflated up to 8atm for 20seconds. Stent Deployment A stent RESOLUTE RONNIE RX 3.5 X 12 #[id number] was inserted and inflated up to 16atm for 22seconds. [address] [address] INVASIVE PROCEDURE REPORT Name: RUY MENDOZA Room #: 242-P [facility] IN M.R.#: [id number] ������������� Admission: 06/14/18 ������������� Attend Phys: Candido Rios, Discharge: ��� ������������� ��� Date of : 56 Date of Service: 06/18/18 0816 �� Report #: [id number] �������� ��������������������������������������������[id number] Final angiography reveals 5 % stenosis with GEORGIE 3 flow. Conclusion 1. Successful insertion of drug-eluting stents into the proximal and mid segments of a codominant left circumflex artery. 2. Recommend dual antiplatelet therapy and aggressive risk factor management. ��������������������������������������������� <ELECTRONICALLY SIGNED> ���������������������������������������� By: Justyn Paige MD ��������������������������������������������� 06/18/18815 5 5 Justyn Paige MD /INF
--- NOTE | 2018-06-18 09:20 | EKG ---
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 Special Education 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: Sarah KANG : 1960 Requested By: Justyn Paige Order Number: [id number] MD: Popeye Higuera Measurements Intervals [place] Rate: 66 P: -2 ND: 166 QRS: -66 QRSD: 99 T: -90 QT: 488 QTc: 512 Interpretive Statements Sinus rhythm Abnormal R-wave progression, late transition Inferior infarct, old Abnrm T, consider ischemia, anterolateral lds Prolonged QT interval Baseline wander in lead(s) II,III,aVF Compared to ECG 06/16/2018 14:25:47 No significant change was found Electronically Signed On 06-18-2018 9:20:33 CDT by Popeye Higuera [email or web address] ��������������������������������������������� <ELECTRONICALLY SIGNED> ���������������������������������������� By: Popeye Higuera MD, [facility] ��������������������������������������������� 06/18/18 0920 1608 1608 Popeye Higuera MD, [facility] /EPI
--- NOTE | 2018-06-18 09:32 | EKG ---
[address] [address] ELECTROCARDIOGRAM REPORT Name: HAIM MENDOZAIFTTIARA Lindsay Room #: 242-P ADM IN M.R.#: [id number] ������������������ Admission: 06/14/18 ������������������ Attend Phys: Candido Rios MD Discharge: ������������������ Date of : 56 Report #: [id number] ����������������������������������������������������������������� [id number] THIS REPORT FOR: //name// [facility] Test Date: 2018-06-18 Test Time: 07:22:48 Pat Name: RUY MENDOZA Department: Room: 242 P Gender: M Modeling Agent: : 1960 Requested By: Justyn Paige Order Number: [id number] MD: Popeye Higuera Measurements Intervals [place] Rate: 80 P: 27 [place]: 162 QRS: -70 QRSD: 92 T: QT: 373 QTc: 431 Interpretive Statements Sinus rhythm Abnormal R-wave progression, late transition Inferior infarct, old Anterior T wave abnormality Compared to ECG 06/16/2018 14:25:47 No significant change was found Electronically Signed On 06-18-2018 9:32:21 CDT by Popeye Higuera [email or web address] ��������������������������������������������� <ELECTRONICALLY SIGNED> ���������������������������������������� By: Popeye Higuera MD, [facility] ��������������������������������������������� 06/18/18 0932 0722 1 Popeye Higuera MD, [facility] /EPI
--- NOTE | 2018-06-18 17:03 | NUR ---
END OF SHIFT NOTE. PT OOB IN CHAIR ALL DAY. VSS. R GROIN STABLE. WANTS TO WEAR 02 AT [facility] FOR COMFORT. TOLORATING DIET.
--- NOTE | 2018-06-18 23:52 | NUR ---
ASSUMED PT CARE AT 1900 WITH NO SIGN OF DISTRESS NOTED. PT IS ALERT AND ORIENTED. DENIES ANY NEEDS AT THIS TIME. SCHEDULED MEDS ADMINISTERED TO PT. VITAL SIGNS STABLE. PT IS TRANSFERRED TO CCU @ 2230
--- NOTE | 2018-06-19 03:59 | NUR ---
ASSUMED PT CARE AT APPROX 2300 FROM ICU. VSS. BP CONTROLLED. PT A&0X4. PT COMPLAINED OF INDIGESTION AND HEADACHE. TYLENOL GIVEN AND SEEMED TO BE EFFECTIVE. PT SLEPT FOR THE REST OF THE NIGHT, NO COMPLAINTS OF DISCOMFORT. PT TO BE D/C TO HOME TODAY.
[2018-06-19 04:50] VITALS: BP 137/94
[2018-06-19 05:10] LABS: HEMATOCRIT 42.1 % (42.0-52.0); HEMOGLOBIN 14.4 gm/dL (14.0-18.0); MCH 29.5 pg (26.0-34.0); MCHC 34.1 g/dL (28.0-37.0); MCV 86.4 fL (80.0-100.0); RBC 4.87 mil/uL (4.50-6.00); RDW 13.4 % (10.5-14.5)
[2018-06-19 07:15] VITALS: BP 139/85
[2018-06-19 11:15] VITALS: BP 125/76
[2018-06-19] MEDS ORDERED: EFFIENT10 MG PO (15:21)
[2018-06-19] MEDS ORDERED: CARVEDILOL25 MG PO (15:21)
[2018-06-19] MEDS ORDERED: ATIVAN0.5 MG PO (15:22)
[2018-06-19] MEDS ORDERED: NORVASC10 MG PO (15:22)
[2018-06-19 15:40] VITALS: BP 123/70
[2018-06-19 15:48] VITALS: BP 125/76
--- NOTE | 2018-06-19 16:31 | NUR ---
PT CARE ASSUMED APPROX 0700. PT ALERT AND ORIENTED X4. DENIES PAIN AND SOA. VSS ALL SHIFT. BP REGIMINE CONTROLLING HTN. PT TO DISCHARGE AT THIS TIME. DISCHARGE PAPERWORK REVIEWED WITH PT AND DAUGHTER. PT DENIES QUESTIONS OR CONCERNS REGARDING HOSPITAL COURSE, DISCHARGE MEDS, SCRIPTS, F/U APPTS, DIET, ACTIVITY LEVEL AND GENERAL POST HOSPITAL CARE. IV OUT, TELE BOX OFF. DAUGHTER PRESENT TO PROVIDE TRANSPORTATION HOME TO SELF CARE.
[2018-06-19 17:06] VITALS: BP 123/70
--- NOTE | 2018-06-22 14:16 | HC ---
[facility] [place] [address] CONSULTATION Name: RUY MENDOZA Room #: 202-P [facility] IN M.R.#: [id number] Admission: 06/14/18 ������������������ Attend Phys: Candido Rios MD Discharge: 06/19/18 ������������������ Date of : 56 Report #: [id number] THIS REPORT FOR: //name// CC: Candido Grey REASON FOR CONSULTATION: Chest pain and hypertensive emergency. HISTORY OF PRESENT ILLNESS: This is a 57-year-old male with a history of hypertension, hyperlipidemia, chronic renal insufficiency who was recently admitted to the hospital with chest discomfort. At that time, he underwent a nuclear stress test, which showed evidence of inferolateral ischemia. A cardiac catheterization was recommended at that time, but the patient reported that he wanted to do this electively as an outpatient as he had a "business to attend to." The patient presented to the Emergency Room again yesterday with chest discomfort. He underwent 3 troponin ruled out in the ER and was sent home. His blood pressure was noted to be elevated at that time. This morning again he started having chest pain and therefore presented back to the ER. He reports the chest pain worsens with exertion, especially if he climbs stairs and improves with rest. It has associated shortness of breath, but denies any PND, orthopnea, presyncope or syncope. REVIEW OF SYSTEMS: A 12-point review of systems was performed and it was negative other than what I mentioned above. PAST MEDICAL HISTORY: 1. Hypertension. 2. Hyperlipidemia. 3. Nephrolithiasis, status post renal stent. 4. Chronic renal insufficiency, newly diagnosed. Creatinine usually around 1.5-1.7. FAMILY HISTORY: Significant for CAD and diabetes. SOCIAL HISTORY: No tobacco. ALLERGIES: None. MEDICATIONS: Have been reviewed. PHYSICAL EXAMINATION: VITAL SIGNS: Temperature is 37.2, pulse 66, blood pressure 182/124, respirations 19, sats are 98%. GENERAL: He is in no acute distress. Alert and oriented x 3. HEENT: Oropharynx is clear. NECK: Supple, with no thyromegaly. HEART: Regular rate and rhythm with no murmurs, rubs, gallops. No JVD. [facility] [address] [place] [address] CONSULTATION Name: RUY MENDOZA Room #: 202-P [facility] IN ..#: [id number] Admission: 06/14/18 ������������������ Attend Phys: Candido Rios MD Discharge: 06/19/18 ������������������ Date of : 56 Report #: [id number] LUNGS: Clear to auscultation bilaterally. ABDOMEN: Soft, nontender, nondistended with no hepatosplenomegaly. EXTREMITIES: There is no clubbing, cyanosis or edema. NEUROLOGIC: Cranial nerves 2-12 are intact. LABORATORY DATA: CBC is normal. Chemistry is normal other than creatinine 1.5. Troponin is negative x 1. His EKG today shows normal sinus rhythm with no ischemic changes and some inferior Q-waves. This is unchanged. Chest x-ray shows no acute process. ASSESSMENT: 1. Unstable angina. 2. Hypertensive urgency. 3. Recent abnormal nuclear stress test. PLAN: The patient will be monitored in the hospital overnight. We will continue the same medications. We will work on optimizing his blood pressure. He will undergo diagnostic cardiac catheterization in the morning. ��������������������������������������������� <ELECTRONICALLY SIGNED> ���������������������������������������� By: Trevon Green MD ��������������������������������������������� 06/22/18 1416 1301 2144 Trevon Green MD /nt
== END 2018-06-19 17:30 | disposition home or self-care (01) | DRG 246 ==
LOC: ER 09:04 → 3W 10:45 → 2N 10:45 → EROBS 10:45 → ICU 10:45 → 3W 11:49 → 2N 06-15 16:47 → ICU 06-16 17:08 → 2N 06-18 22:44 → ENTRNSPT 06-19 17:24 → 2N 06-19 17:30
PROVIDERS: Emergency Medicine; Internal Medicine Cardiovascular Disease; ADMIT Internal Medicine
DX: I25.110 Atherosclerotic heart disease of native coronary artery with unstable angina pectoris (principal); I50.33 Acute on chronic diastolic (congestive) heart failure; I16.0 Hypertensive urgency; E78.5 Hyperlipidemia, unspecified; M10.9 Gout, unspecified; E78.00 Pure hypercholesterolemia, unspecified; I12.9 Hypertensive chronic kidney disease with stage 1 through stage 4 chronic kidney disease, or unspecified chronic kidney disease; N18.9 Chronic kidney disease, unspecified; Z87.442 Personal history of urinary calculi; Z79.82 Long term (current) use of aspirin; Z79.899 Other long term (current) drug therapy; Z82.49 Family history of ischemic heart disease and other diseases of the circulatory system; Z83.3 Family history of diabetes mellitus; Z82.3 Family history of stroke
CPT/HCPCS: 10078; 10081; 10879